=== PATIENT | male | born 1955 | race Caucasian/White ===

== ENCOUNTER → 2017-09-14 | Outpatient (CLI) | payer BC, OTHER ==
[~2017-09-14] VITALS: Ht 175.3 cm; Wt 77.1 kg
[~2017-09-14] MED LIST: ADULT LOW DOSE81 MG PO; ASPIRIN EC325 M1; CELEBREX 200 M200 MG PO; DOCUSATE SODIU100 MG PO; FISH OIL PO; FLOMAX0.4 MG PO; GLUCOSAMINE &1 EAC1 PO; HYDROCODON-ACE1 EAC7 PO; MOBIC15 MG PO; MULTIVITAMINS1 EAC7 PO; OXYCODONE HCL5 M1 PO; PROBIOTIC1 EAC2 PO; RESVERATROL100 MG PO; TUMERIC; TUMERSAID TABL1 EACH PO; VITAMIN C PO; VITAMIN D1000 UNI1 PO; VITAMIN D2000 UNIT PO; VITAMIN K240 MCG PO; XARELTO10 M1 PO
--- NOTE | ~2017-09-14 | HPC ---
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 Upton for assistance with management of right neck and shoulder pain. The patient notes symptoms began in July without antecedent trauma and overuse. He has tried eetk-usv-kcudldy anti-inflammatory medications with physical therapy with nominal efficacy. Notes symptoms are exacerbated when he is working. He rates the pain anywhere from a 3 to 7 on a VAS. He is loathe to use of opiate analgesics. He has taken some Tylenol and ilrw-pie-zyvwtgj NSAIDs. He notes pain has continued to be problematic and is starting to interfere with function. He denies bowel or bladder continence changes or any significant myelopathic symptoms. REVIEW OF SYSTEMS: Complete review of systems attached to chart and gone over with the patient. He is , does not smoke or drink alcohol to excess. He has enjoyed remarkably good health. Did have a single issue with prostate cancer treated with radical prostatectomy and required no further adjuvant therapy. This was in 2005. He has otherwise enjoyed remarkably good health. He has had a right total hip arthroplasty and knee surgeries in 2016. He has continued to work despite pain. Pain impact score is about 22/70. PHYSICAL EXAMINATION: Reveals a 5 feet 9 inches, 170 pounds gentleman, BMI is 25.1 kilograms per meter squared, blood pressure 129/86, pulse 72 and respiration 14. Cranial nerves 2-12 are grossly intact. Pupils are equal and react to light and accommodation. Extraocular muscles are intact. Cervical range of motion is full, but range of motion slightly exacerbates pain in the right mid neck. Slight decreased right triceps strength though deep tendon reflexes are preserved. Negative Tinel's. Hand grasp is symmetric. Heart is regular and rhythmical without murmur. Lungs are clear to auscultation. Abdomen is benign. Gait is tandem. Skin integument is intact. DIAGNOSTIC STUDIES: Review of diagnostic studies including MRI of the cervical spine from 09/11/2017, does have some marked disk space narrowing at C5-C6, large circumferential bulging annulus, facet hypertrophy, narrowing of the neural foramen, left greater than right, but the anterior thecal sac does abut the right side of the cord at this level. ASSESSMENT: Symptomatic cervical radiculopathy with clinical exam and history, component of cervical spondylosis, right C5-C6 [address] [address] PAIN MANAGEMENT CONSULTATION Name: GUEVARA CABA Room #: REG CLEduardo Torres#: [id number] Admission: 09/14/17 Attend Phys: Antonio Lopes DO Discharge: Date of : 53 Report #: [id number] RECOMMENDATIONS: 1. I had a long discussion with the patient today about therapeutic option. We have elected to start the patient on Celebrex 200 mg 1 a day for 30 days. We did discuss risks of NSAID agents in general and coronary artery disease. He has no other cardiac risk factors. We have elected to simply try 30 days of this IGLESIAS selective NSAID. 2. Cervical epidural injection under fluoroscopy today. 3. Follow up in 30 days for reevaluation, may consider right C5-C6 facet joint injection under fluoroscopy if indicated clinically at that time. Thank you for allowing me to participate in the patient's care. We will keep you abreast of his progress. PROCEDURE: Cervical epidural steroid injection under fluoroscopy. PROCEDURE NOTE: After written and informed consent was obtained including risk of dural puncture, spinal cord trauma, paralysis and increased pain, the patient was taken to the fluoroscopy suite and placed in the prone position, with appropriate abdominal bolstering, neck was flexed, palms under the thighs. Skin was prepped with ChloraPrep. Sterile draping was applied. Skin wheal with 1% Xylocaine was raised. A 22-gauge 3-1/2 inch epidural Tuohy needle was placed via a midline approach at the C7-T1 interspace, advanced under biplanar fluoroscopy using continuous loss of resistance. With appropriate loss of resistance at the expected depth on lateral view, the glass loss of resistance syringe was disconnected. A low volume extension tubing was connected to the needle and a 5 mL syringe. Negative aspiration for cerebrospinal fluid or blood was noted. A 1 mL of Omnipaque was injected which showed spread within the epidural space on biplanar fluoroscopy. This was followed with 80 mg of triamcinolone plus 1 mL of 1.5% preservative Xylocaine. Needle was withdrawn to the interspinous ligament, 0.5 mL of Xylocaine was used to flush the needle. The needle was then completely withdrawn. The area was cleansed. Band-Aid was applied. The patient was allowed to move off the procedure table and ambulated to the recovery room, monitored for an appropriate period of time, discharged in good and stable condition. <ELECTRONICALLY SIGNED> By: Antonio Lopes DO 09/17/17 0925 [id number] Antonio Lopes DO /rachelle
[2017-09-14 14:08] VITALS: BP 129/86
== END | disposition home or self-care (01) ==
LOC: PAIN 07:14
DX: M47.22 Other spondylosis with radiculopathy, cervical region (principal); I25.10 Atherosclerotic heart disease of native coronary artery without angina pectoris; Z98.890 Other specified postprocedural states; Z85.46 Personal history of malignant neoplasm of prostate

== ENCOUNTER → 2017-09-27 | Outpatient (CLI) | payer BC, OTHER ==
[~2017-09-27] VITALS: Ht 175.3 cm; Wt 77.6 kg
--- NOTE | ~2017-09-27 | HPC ---
[facility] [address] [place] [address] PAIN MANAGEMENT CONSULTATION Name: GUEVARA CABA Room #: REG [facility] Brian#: [id number] Admission: 09/27/17 Attend Phys: Antonio Lopes DO Discharge: Date of : 53 Report #: [id number] THIS REPORT FOR: //name// CC: Gerry Lopes The patient is a very pleasant 61-year-old, last seen in consultation 09/14/2017. We did a cervical epidural injection at that time for ongoing cervical radicular symptoms. He returns to pain clinic today noting that cervical radicular symptoms affecting the right shoulder and arm are essentially gone. However, he has ongoing pain in his neck, pain exacerbated with cervical extension and rotation. It is classically compatible with cervical spondylosis. We reviewed his MRI from 09/11/2017. Does have facet arthropathy, C3-4, 4-5, 5-6. C5-6 does note disk bulge abutting the right cord. ASSESSMENT: Symptomatic cervical spondylosis without myelopathy, history of cervical radiculopathy, latter symptoms are relatively quiescent. RECOMMENDATIONS: Discussed with the patient today about therapeutic option. Suggested we move forward with bilateral facet joint injections at C2-3, 3-4 and 4-5. I told the patient that his insurance company will only allow 1 injection every 30 days. It will be 2 weeks before we can move forward with facet joint injections. The patient is quite frustrated with ongoing neck pain. 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 He request that we move forward with intervention today. He states he is willing to pay for the procedure out of pocket. ASSESSMENT: Symptomatic cervical spondylosis without myelopathy. PROCEDURE: Bilateral C2-C3, 3-4 and 4-5 facet joint injection under fluoroscopy. PROCEDURE NOTE: After written informed consent was obtained, the patient was taken to the fluoroscopy suite and placed in prone position. After sterile prep and drape, skin was raised. A 22-gauge stylet needle was placed to contact posterior aspect of left C2-3, 3-4 and 4-5 facets. Needle was placed in the middle of the lateral mass. AP and lateral projections showed good needle placement. Three needles were placed on the contralateral, i.e., right side approaching the posterior aspect of the right C2-3, 3-4 and 4-5 facet joints. Again, AP and lateral projections showed good needle placement. A 2 mg of Decadron plus 1 mL of 0.5% preservative-free bupivacaine injected at all 6 sites. All 6 needles removed. The area was cleansed. Band-Aid applied. Fluoroscopy time was under 15 seconds. The patient [place] [address] PAIN MANAGEMENT CONSULTATION Name: ROSALESGUEVARA GIORGIO Room #: REG CLI Brian#: [id number] Admission: 09/27/17 Attend Phys: Antonio Lopes DO Discharge: Date of : 53 Report #: [id number] recovery, monitored for appropriate period of time. Follow up in 2 weeks for evaluation. <ELECTRONICALLY SIGNED> By: Antonio Lopes DO 10/03/17 0744 1626 [id number] Antonio Lopes DO /nt
[2017-09-27 13:52] VITALS: BP 150/78
== END | disposition home or self-care (01) ==
LOC: PAIN 07:09
DX: M47.812 Spondylosis without myelopathy or radiculopathy, cervical region (principal)

== ENCOUNTER → 2017-10-19 | Outpatient (CLI) | payer BC, OTHER ==
[~2017-10-19] VITALS: Ht 175.3 cm; Wt 79.9 kg
--- NOTE | ~2017-10-19 | HPC ---
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 Had good improvement of right cervical radicular symptoms. I was seen in followup on 09/27/2017, was having more spondylitic pain. We did bilateral C2-C3, C3-C4 and C4-C5 facet joint injections with again significant overall improvement. Notes the neck pain has significantly attenuated, still is having a little recurrence of some right shoulder and C6 radicular pain. Cervical range of motion is modestly limited. Positive Lhermitte's radiating to the right, though no tenderness noted over the cervical facets. Does have little tenderness at the base of the skull, looks more like muscle spasm at the superior splenius capitis bilaterally. ASSESSMENT: Symptomatic cervical radiculopathy with clinical exam and history, had good incremental improvement following initial cervical epidural injection. Symptoms are beginning to recur. RECOMMENDATION: Repeat cervical epidural injection under fluoroscopy today. Follow up simply as needed. PROCEDURE: Cervical epidural injection under fluoroscopy. PROCEDURE NOTE: After written and informed consent was obtained including risk of dural puncture, spinal cord trauma, paralysis and increased pain, the patient was taken to the fluoroscopy suite and placed in the prone position, with appropriate abdominal bolstering, neck was flexed, palms under the thighs. Skin was prepped with ChloraPrep. Sterile draping was applied. Skin wheal with 1% Xylocaine was raised. A 22-gauge 3-1/2 inch epidural Tuohy needle was placed via a midline approach at the C7-T1 interspace, advanced under biplanar fluoroscopy using continuous loss of resistance. With appropriate loss of resistance at the expected depth on lateral view, the glass loss of resistance syringe was disconnected. A low volume extension tubing was connected to the needle and a 5 mL syringe. Negative aspiration for cerebrospinal fluid or blood was noted. A 1 mL of Omnipaque was injected which showed spread within the epidural space on biplanar fluoroscopy. This was followed with 80 mg of triamcinolone plus 1 mL of 1.5% preservative Xylocaine. Needle was withdrawn to the interspinous ligament, 0.5 mL of Xylocaine was used to flush the needle. The needle was then completely withdrawn. The area was cleansed. Band-Aid was applied. The patient was allowed to move off the procedure table and ambulated [address] [address] PAIN MANAGEMENT CONSULTATION Name: ROSALESGUEVARA GIORGIO Room #: REG YOBANI Torres#: [id number] Admission: 10/19/17 Attend Phys: Antonio Lopes DO Discharge: Date of : 53 Report #: [id number] to the recovery room, monitored for an appropriate period of time, discharged in good and stable condition. <ELECTRONICALLY SIGNED> By: Antonio Lopes DO 10/22/17 0809 1443 1901 Antonio Lopes DO /nt
[2017-10-19 12:45] VITALS: BP 134/78
== END | disposition home or self-care (01) ==
LOC: PAIN 06:53
DX: M54.12 Radiculopathy, cervical region (principal)

== ENCOUNTER → 2021-01-21 | Outpatient (CLI) | payer OTHER ==
[~2021-01-21] VITALS: Ht 22.9 cm; Wt 77.1 kg
[~2021-01-21] MED LIST changes: +ADVIL200 M1 PO; +CELEBREX 200 M200 M1 PO; +COQ-10100 MG PO; +IBUPROFEN 800800 M1 PO; +MAGNESIUM250 M1 PO; +MELOXICAM15 MG PO; +PROBIOTIC1 EAC7 PO; +VITAMIN C1000 MG PO
--- NOTE | ~2021-01-21 | HPC ---
[facility] [place] [address] PAIN MANAGEMENT CONSULTATION Name: GUEVARA CABA Room #: REG [facility]#: [id number] Admission: 01/21/21 Attend Phys: Karan Santana MD Discharge: Date of : 53 Report #: [id number] THIS REPORT FOR: cc: Gerry Upton,Karan Martinez MD ~ cc: Gerry Upton DO DATE OF SERVICE: 01/21/2021 PRIMARY PHYSICIAN: Gerry Upton D.O. CHIEF COMPLAINT: Neck tightness and pain in the shoulder. 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 He has been experiencing pain and discomfort in his neck. It is primarily on the right side. There is a tightness associated with this. He has had some pain in the arm and had some pain in the right forearm. He has more pain and discomfort with certain activities. Playing golf can be somewhat problematic. He has seen a chiropractor. There is some question as to whether or not this discomfort is associated with thoracic outlet syndrome. Being a dentist, he has had chronic back pain for the last 25 years because of his occupation. He thinks the anterior scalene muscle is involved. He would like an injection in the anterior scalene area to help with the pain. MEDICATIONS: Fish oil 3000 mg daily, multivitamins, turmeric, resveratrol 100 mg, vitamin D3, ibuprofen 200 mg p.r.n., meloxicam 15 mg, vitamin K, vitamin C, CoQ 100 mg, magnesium 250 mg, probiotic. ALLERGIES: No known drug allergies. PAST MEDICAL HISTORY: Hernia repair, 2015. Three knee surgeries, 1978, 2012, 2016. Prostate removal, 2005. Thigh muscle repair, right hip replacement, 2014. Bilateral nephrolithiasis. OCCUPATION: Dentist. EMPLOYMENT STATUS: Self-employed. History of osteoarthritis, whole body per the patient. History of rheumatoid arthritis, negative. Pain intensity, 2 up to 10 depending on the activity. Blood thinner, none. Functional assessment tool, . History of hypertension, the patient is not being treated for hypertension. Tobacco, the patient has never smoked. Recreational drug, he denies. Alcohol, occasional. Risk assessment tool, low for opioid use. REVIEW OF SYSTEMS: [facility] [address] [place] [address] PAIN MANAGEMENT CONSULTATION Name: GUEVARA CABA [facility] [id number] Admission: 01/21/21 Attend Phys: Karan Santana MD Discharge: Date of : 53 Report #: [id number] EARS, EYES, NOSE AND THROAT: Unremarkable today. CARDIOVASCULAR: No complaint. RESPIRATORY: No complaints. GASTROINTESTINAL: None. GENITOURINARY: Kidney stones. MUSCULOSKELETAL: Arthritis, joint disease. NEUROLOGIC: None. INTEGUMENTARY: None. PSYCHIATRIC: None. ENDOCRINE: None. HEMATOLOGIC/LYMPHATIC: None. PHYSICAL EXAMINATION: VITAL SIGNS: Blood pressure 120/70, pulse 65, respiratory rate 18, room air saturation 97%. GENERAL: The patient is a well-developed, well-nourished white male. Appears his stated age. He is alert and oriented x 3. HEENT: Normocephalic, atraumatic. Extraocular eye muscles intact. Sclerae nonicteric. Mucous membranes are moist. The patient is wearing a facial covering. NECK: The patient is without adenopathy or JVD. Has some pain and discomfort in the right neck area. Palpation in the area of the anterior scalene does cause pain and reproduces the pain and discomfort he is complaining of. HEART: Regular rate. LUNGS: Clear to auscultation. ABDOMEN: Nontender. MUSCULOSKELETAL: Without significant scoliosis, kyphosis, or lordosis. NEUROLOGIC: Upper extremity muscle strength is judged to be 5/5 for the major muscle groups in the upper extremity. Muscle strength 5/5 for the major muscle groups in the lower extremity. IMPRESSION: 1. Neck tightness involving the trapezius and right arm. 2. Low back pain and history of piriformis muscle injury. 3. Osteoarthritis with replacement of the right hip. 4. History of cervical spondylosis without myelopathy. 5. History of cervical radiculopathy - cervical facet injections C2/C3, C3/C4, and C5/C6. 6. Prostate cancer. 7. Renal stones. RECOMMENDATION: We discussed the details with the patient. We reviewed the possible complications of an injection in the neck area. They include infection, worsening of pain, no improvement in pain as well as possibility of a seizure with local anesthetic injected into a vascular area. The patient is aware and elects to proceed. [address] [address] PAIN MANAGEMENT CONSULTATION Name: GUEVARA CABA Room #: REG YOBANI Torres#: [id number] Admission: 01/21/21 Attend Phys: Karan Santana MD Discharge: Date of : 53 Report #: [id number] PROCEDURE NOTE: The patient was taken to the procedure area. He was then assisted in getting on the examination table. He was positioned in the supine position. His right neck was sterilely prepped with a chlorhexidine solution. The right anterior scalene muscle area was identified. A 25-gauge needle was then used to provide a skin wheal over the anterior scalene muscle. The patient confirmed with palpation this was the area of discomfort. A 27-gauge needle was then advanced into the area of the anterior scalene muscle. Aspiration was negative. A total of 40 mg of triamcinolone and 2 mL of 0.25% bupivacaine was injected. The patient tolerated the procedure well. He was taken to the recovery room where he remained for an appropriate amount of time. There was no muscle weakness. He did note some tingling in his forearm, which resolved prior to his discharge. He rated his pain at 0 at the time of discharge. The patient will return to the pain clinic in the future. He will call us if he has any concerns. We would like to thank you for letting us participate in his care. We hope he continues to improve. By: [id number] Karan Santana MD /nt
[2021-01-21 13:37] VITALS: BP 128/66
--- NOTE | 2021-01-21 14:31 | NUR ---
Pain Clinic Assessment: 1. History of Osteoarthritis: WHOLE BODY PER PT History of Rheumatoid Arthritis: N0 2. Height: 5 ft. 9 in. 22.9 cm. Weight: 170.0 lb. oz. 77.112 kg. Patient's BMI: 1470.5 3. Vital Signs: BP: 128/66 Pulse: 67 Resp: 14 Temp: 02 Sat: 98 ECG Mon: 4. Pain Intensity: 3 UP TO 7 5. Fall Risk: Dizziness: N Needs help standing or walking: N Fallen in the last 3 months: N Fall risk comments: 6. Patient on Blood Thinner: None 7. History of Hypertension: N 8. Opioid Therapy greater than 6 weeks: N Opiate Contract Signed: 9. Risk Assessment Tool Provided: LOW-0 10. Functional Assessment Tool: 11. Recreational Drug Use: Never Drug Type: Tobacco Use: Never Smoker Tobacco Type: Amount or Packs/day: How Many Years: Alcohol Use: Yes Frequency: Monthly Quant: 2
== END | disposition home or self-care (01) ==
LOC: PAIN 09:51
PROVIDERS: ATTEND Anesthesiology Pain Medicine
DX: M79.18 Myalgia, other site (principal); M19.90 Unspecified osteoarthritis, unspecified site; Z98.890 Other specified postprocedural states; Z79.899 Other long term (current) drug therapy; Z85.46 Personal history of malignant neoplasm of prostate; Z96.641 Presence of right artificial hip joint

== ENCOUNTER → 2021-02-09 | Outpatient (CLI) | payer OTHER ==
[~2021-02-09] VITALS: Ht 175.3 cm; Wt 79.0 kg
[2021-02-09 12:40] VITALS: BP 117/65
--- NOTE | 2021-02-09 12:48 | NUR ---
Pain Clinic Assessment: 1. History of Osteoarthritis: WHOLE BODY PER PT History of Rheumatoid Arthritis: N0 2. Height: 5 ft. 9 in. 175.3 cm. Weight: 174.2 lb. oz. 79.017 kg. Patient's BMI: 25.7 3. Vital Signs: BP: 117/65 Pulse: 64 Resp: 16 Temp: 02 Sat: 97 ECG Mon: 4. Pain Intensity: 2 UP TO 8 WITH ACTIVITY 5. Fall Risk: Dizziness: N Needs help standing or walking: N Fallen in the last 3 months: N Fall risk comments: 6. Patient on Blood Thinner: None 7. History of Hypertension: N 8. Opioid Therapy greater than 6 weeks: N Opiate Contract Signed: 9. Risk Assessment Tool Provided: LOW-0 10. Functional Assessment Tool: 11. Recreational Drug Use: Never Drug Type: Tobacco Use: Never Smoker Tobacco Type: Amount or Packs/day: How Many Years: Alcohol Use: Yes Frequency: Monthly Quant: 1
== END | disposition home or self-care (01) ==
LOC: PAIN 10:24
PROVIDERS: ATTEND Anesthesiology Pain Medicine
DX: M79.18 Myalgia, other site (principal); M54.2 Cervicalgia; M54.5 Low back pain; M16.11 Unilateral primary osteoarthritis, right hip; M19.90 Unspecified osteoarthritis, unspecified site; Z96.641 Presence of right artificial hip joint; Z85.46 Personal history of malignant neoplasm of prostate; Z87.442 Personal history of urinary calculi; Z98.890 Other specified postprocedural states; Z79.899 Other long term (current) drug therapy